=== PATIENT | female | born 1955 | race Caucasian/White ===

== ENCOUNTER 2021-04-17 12:22 | Observation (INO) ==
[2021-04-17 12:50] LABS: Basophils # 0.1 K/mcL (0.0-0.2); Basophils % 0.7 %; Eosinophils # 0.4 K/mcL (0.0-0.6); Eosinophils % 4.3 %; Hematocrit 39.9 % (35.3-44.9); Hemoglobin 13.1 g/dL (11.5-15.4); Immature Granulocytes % 0.3 % (0-4); Lymphocytes # 3.3 K/mcL (0.6-4.6); Mean Corpuscular HGB Conc 32.8 g/dL (31.6-35.5); Mean Corpuscular Hemoglobin 29.6 pg (28.0-33.3); Mean Corpuscular Volume 90.1 fL (83.0-100.0); Mean Platelet Volume 11.3 fL (9.4-12.4); Monocytes # 0.4 K/mcL (0.0-1.3); Monocytes % 4.3 %; Neutrophils # 5.7 K/mcL (1.6-8.9); Platelet Count 198 K/mcL (140-400); Red Blood Count 4.43 M/mcL (3.82-4.97); Red Cell Distribution Width 14.5 % (11.5-14.5); Segmented Neutrophils % 57.4 %; White Blood Count 9.9 K/mcL (4.3-11.1)
[2021-04-17 12:56] LABS: Chloride 101 mEq/L (98-107); INR 1.1; Potassium 3.8 mEq/L (3.5-5.1); Prothrombin Time 12.7 Seconds (9.4-12.1); Sodium 134 mEq/L (136-145)
[2021-04-17 12:59] LABS: Activated Partial Thrombo Time 22.9 Seconds (26.0-36.0)
[2021-04-17 13:06] LABS: Troponin I < 0.03 ng/mL (< 0.04)
[2021-04-17] MEDS ORDERED: Nitroglycerin 1 INCH/GM PACKET TP ONE (13:32)
[2021-04-17] MEDS ORDERED: cloNIDine HCL 0.1 MG TABLET PO ONE (13:32)
[2021-04-17 13:54] LABS: Alanine Aminotransferase 18 Units/L (7-52); Albumin/Globulin Ratio 1.3 (1.1-2.2); Alkaline Phosphatase 84 Units/L (34-104); Aspartate Amino Transferase 18 Units/L (13-39); BUN/Creatinine Ratio 17 (6-26); Bilirubin,Total 0.4 mg/dL (0.3-1.0); Blood Urea Nitrogen 12 mg/dL (8-23); Calcium 8.6 mg/dL (8.6-10.3); Carbon Dioxide 21 mEq/L (23-29); Globulin 3.1 g/dL (2.4-3.5); Glucose 127 mg/dL (70-105); Magnesium 1.7 mg/dL (1.6-2.6); Osmolality,Calculated 279 (280-300); Total Protein 7.1 g/dL (6.4-8.9); eGFR For African Americans > 60 (> 60); eGFR For Non-African Americans > 60 (> 60)
[2021-04-17 13:55] LABS: Phosphorous 3.1 mg/dL (2.7-4.5)
[2021-04-17] MEDS ORDERED: Acetaminophen 325 MG TABLET PO PRN (14:41)
[2021-04-17] MEDS ORDERED: Naloxone 0.4 MG/ML INJ IVP PRN (14:41)
[2021-04-17] MEDS ORDERED: Ondansetron 4 MG/2 ML VIAL IVP PRN (14:41)
[2021-04-17] MEDS ORDERED: Nicotine 21 MG PATCH.TD24 TD SCH (14:43)
[2021-04-17] MEDS ORDERED: amLODIPine 5 MG TABLET PO SCH (14:44)
[2021-04-17 15:44] VITALS: BP 134/67
[2021-04-17] MEDS ORDERED: Heparin 1,000 UNITS/500 mL IV.SOLN IVC ONE (16:01)
[2021-04-17] MEDS ORDERED: *HR* Heparin 5,000 UNIT/ML VIAL IVP PRN ×2 (16:05)
[2021-04-17] MEDS ORDERED: *HR* Heparin 5,000 UNIT/ML VIAL IVP ONE (16:05)
[2021-04-17] MEDS ORDERED: Aspirin 325 MG TABLET PO ONE (16:07)
[2021-04-17] MEDS ORDERED: Heparin 25,000UNIT/250ML 1/2NS 25,000 UNIT/250 ML IV.SOLN IVC SCH (16:15)
[2021-04-17 16:31] LABS: Hematocrit 37.5 % (35.3-44.9); Hemoglobin 12.5 g/dL (11.5-15.4); Mean Corpuscular HGB Conc 33.3 g/dL (31.6-35.5); Mean Corpuscular Hemoglobin 29.8 pg (28.0-33.3); Mean Corpuscular Volume 89.3 fL (83.0-100.0); Mean Platelet Volume 11.4 fL (9.4-12.4); Platelet Count 198 K/mcL (140-400); Red Cell Distribution Width 14.4 % (11.5-14.5); White Blood Count 12.1 K/mcL (4.3-11.1)
[2021-04-17 16:41] LABS: Heparin anti-factor XA UFH < 0.04 IU/mL (0.30-0.70)
[2021-04-17 16:42] LABS: INR 1.1; Prothrombin Time 12.5 Seconds (9.4-12.1)
[2021-04-17] MEDS ORDERED: *HR* Heparin 5,000 UNIT/ML VIAL SQ SCH (22:00)
== END 2021-04-17 17:40 | disposition short-term general hospital (02) ==
LOC: EMEROOPIK 12:22 → INPPIK 12:22
PROVIDERS: ADMIT Family Medicine; ATTEND Family Medicine